=== PATIENT | male | born 1975 | race Caucasian/White ===

== ENCOUNTER 2017-12-26 12:16 | Observation (INO) | payer SELFPAY ==
[2017-12-26] VITALS (9 sets, daily range): BP systolic 123–138; BP diastolic 67–88; PULSE 70–96; RESP 14–18; TEMP 98–98.8; O2SAT 94–99
[2017-12-26] MEDS ORDERED: SODIUM CHLOR 0.9% 1000 ML INJ 1,000 ML IV ONE (12:29)
--- NOTE | 2017-12-26 12:39 | PD ---
HPI Chief Complaint: Stroke Alert Time Seen by Provider: 12:27 Travel History International Travel<30 days: No Contact w/Intl Traveler<30days: No Traveled to known affect area: No History of Present Illness HPI 41 y/o male presents with numbness to his right lower face and right lower arm. He states he was just discharged from [facility] yesterday for a stroke where he had tingling to his face and could not walk. He states all his symptoms had gone away and so that's why he came down here for the races. He states they discharged him on a baby aspirin. He denies any other concurrent complaints. He states he lives in [place]. Quality is feeling like when it goes to sleep. Duration is 30 minutes prior to arrival. [facility] Past Medical History Medical History: Denies Significant Hx Past Surgical History Tonsillectomy: Yes Other Surgery: Yes (VASECTOMY) Social History Alcohol Use: No Tobacco Use: No Substance Use: Yes Allergies-Medications (Allergen,Severity, Reaction): Coded Allergies: No Known Allergies (Unverified , 12/26/17) Review of Systems Except as stated in HPI: all other systems reviewed are Neg Physical Exam Narrative GENERAL: Well-nourished, well-developed patient. SKIN: Warm and dry. HEAD: Normocephalic and atraumatic. EYES: No injection or drainage. ENT: No nasal drainage noted. NECK: Supple, trachea midline. CARDIOVASCULAR: Regular rate and rhythm RESPIRATORY: Breath sounds equal bilaterally. No accessory muscle use. GASTROINTESTINAL: Abdomen soft, non-tender, nondistended. EXTREMITIES: No edema. BACK: Nontender without obvious deformity. NEUROLOGICAL: Awake and alert. Motor grossly within normal limits. Normal speech. 5 out of 5 in all 4 extremities, patient able to get out of wheelchair and get into the bed on his own, no pronator drift, no facial droop, patient subjectively states his right lower face and right hand feel tingly Data Data Last Documented VS Vital Signs Date Time Temp Pulse Resp B/P (MAP) Pulse Ox O2 Delivery O2 Flow Rate FiO2 12/26/17 13:06 79 16 123/79 (94) 96 Room Air 12/26/17 12:18 98.0 Orders Orders Diet Npo (12/26/17 Lunch) Activity Bed Rest (12/26/17 ) Electrocardiogram (12/26/17 ) I-Stat Profile (12/26/17 12:29) Prothrombin Time / Inr (Pt) (12/26/17 12:29) Act Partial Throm Time (Ptt) (12/26/17 12:29) Complete Blood Count With Diff (12/26/17 12:29) Fibrinogen (12/26/17 12:29) Creatine Kinase (Cpk) (12/26/17 12:29) Troponin I (12/26/17 12:29) Ua Includes Microscopic (12/26/17 12:29) Drug Screen, Random Urine (12/26/17 12:29) Type And Screen (12/26/17 12:29) Ct Brain W/O Iv Contrast(Rout) (12/26/17 ) Blood Glucose (12/26/17 12:29) Ecg Monitoring (12/26/17 12:29) Neuro Checks Q2HX12,Q4H (12/26/17 12:29) Nursing Bedside Swallow Assess .ONCE (12/26/17 12:29) Iv Access Insert/Monitor (12/26/17 12:29) NPO (12/26/17 12:29) Oximetry (12/26/17 12:29) Sodium Chlor 0.9% 1000 Ml Inj (Ns 1000 M (12/26/17 12:29) Alcohol (Ethanol) (12/26/17 12:29) Admit Order (Ed Use Only) (12/26/17 13:59) Aspirin (Aspirin) (12/26/17 14:00) Place In Observation (12/26/17 ) Code Status (12/26/17 13:57) Vital Signs (Adult) Q2HX12,Q4H (12/26/17 13:57) Nih Stroke Scale - Nihss .Daily (12/26/17 13:57) Neuro Checks Q2HX12,Q4H (12/26/17 13:57) Notify Dr: Joshua (12/26/17 13:57) Remove Urinary Catheter .ONCE (12/26/17 13:57) Ot Request For Service (12/26/17 13:57) Pt Request For Service (12/26/17 13:57) Speech Therapy Consult-Eval/Tx (12/26/17 13:57) Case Management Consult (12/26/17 ) Activity Oob Ad Diandra (12/26/17 13:57) Nursing Bedside Swallow Assess .ONCE (12/26/17 13:57) Scd Bilateral/Knee High ABBIE.QSHIFT (12/26/17 13:57) Complete Blood Count With Diff (12/27/17 06:00) Hemoglobin (Hgb) A1c (12/26/17 13:57) Lipid Profile (12/27/17 06:00) ^ Hold Medication (12/26/17 13:57) Sodium Chloride 0.9% Flush (Ns Flush) (12/26/17 21:00) Sodium Chloride 0.9% Flush (Ns Flush) (12/26/17 14:00) Aspirin Chew (Aspirin Chew) (12/27/17 09:00) Bedside Glucose ABBIE.CSUGAR (12/26/17 13:57) ^ Discontinue Insulin Orders (12/26/17 13:57) Insulin Aspart Supplemtl Scale (Novolog (12/26/17 17:00) Dextrose 50% In Avis (Vial) Inj (D50w (Vi (12/26/17 14:00) Glucagon Inj (Glucagon Inj) (12/26/17 14:00) Direct Care Staffer / Telemetry ABBIE.Q8H (12/26/17 13:57) Consult Stroke Navigator (12/26/17 ) Enoxaparin Inj (Lovenox Inj) (12/26/17 14:00) Scd Bilateral/Knee High ABBIE.BID (12/26/17 13:57) Kwaku Bilateral/Knee High ABBIE.QSHIFT (12/26/17 13:57) Comprehensive Metabolic Panel (12/27/17 06:00) Consult Neurology (12/26/17 ) Labs Laboratory Tests Test 12/26/17 12:25 White Blood Count 7.6 TH/MM3 Red Blood Count 5.08 MIL/MM3 Hemoglobin 15.4 GM/DL Bedside Hemoglobin 15.3 G/DL Hematocrit 44.9 % Bedside Hematocrit 45.0 % Mean Corpuscular Volume 88.5 FL Mean Corpuscular Hemoglobin 30.3 PG Mean Corpuscular Hemoglobin Concent 34.3 % Red Cell Distribution Width 12.5 % Platelet Count 273 TH/MM3 Mean Platelet Volume 8.7 FL Neutrophils (%) (Auto) 64.5 % Lymphocytes (%) (Auto) 25.0 % Monocytes (%) (Auto) 8.5 % Eosinophils (%) (Auto) 1.0 % Basophils (%) (Auto) 1.0 % Neutrophils # (Auto) 4.9 TH/MM3 Lymphocytes # (Auto) 1.9 TH/MM3 Monocytes # (Auto) 0.7 TH/MM3 Eosinophils # (Auto) 0.1 TH/MM3 Basophils # (Auto) 0.1 TH/MM3 CBC Comment DIFF FINAL Differential Comment Prothrombin Time 10.5 SEC Prothromb Time International Ratio 1.0 RATIO Activated Partial Thromboplast Time 24.0 SEC Fibrinogen 346 mg/dL Bedside Sodium 140 MMOL/L Bedside Potassium 4.4 MMOL/L Bedside Chloride 104 MMOL/L Bedside Blood Urea Nitrogen 14 MG/DL Bedside Creatinine 1.4 MG/DL Bedside Glucose 106 MG/DL Total Creatine Kinase 168 U/L Troponin I LESS THAN 0.02 NG/ML Ethyl Alcohol Level LESS THAN 3 MG/DL MDM Medical Decision Making Medical Screen Exam Complete: Yes Emergency Medical Condition: Yes Medical Record Reviewed: Yes (past history confirmed) Interpretation(s) CBC & BMP Diagram 12/26/17 12:25 Last [address] 12/26/17 0000 Signed Impressions: Service Date/Time: Tuesday, December 26, 2017 12:34 - CONCLUSION: Normal examination. Mini Sampson MD Differential Diagnosis Stroke, TIA, bleed, migraine Narrative Course Given history and onset of symptoms we'll call stroke alert and discuss with neurology Given patient only has tingling to his hand and lower face at this time not a candidate for TPA patient updated, will dose with aspirin and admit, denies new complaints Physician Communication Physician Communication dr winter agrees to workup and patient will need admitted to the hospital but not a candidate for TPA dr puentes agrees to admit Diagnosis Primary Impression: Right facial numbness Additional Impression: Right arm numbness Admitting Information Admitting Physician Requests: Observation Nora Dao MD Dec 26, 2017 12:39
--- NOTE | 2017-12-26 12:43 | RADRPT ---
EXAM DATE/TIME: 12/26/2017 12:34 [facility] COMPARISON: No previous studies available for comparison. INDICATIONS : Stroke alert, visual changes in right eye. RADIATION DOSE: 56.35 CTDIvol (mGy) This report was called by Dr. Sampson to Dr. Quiroz at 12: 40 PM MEDICAL HISTORY : Stroke. SURGICAL HISTORY : None. ENCOUNTER: Initial ACUITY: 1 day PAIN SCALE: 0/10 LOCATION: Bilateral head TECHNIQUE: Multiple contiguous axial images were obtained of the head. Using automated exposure control and adj ustment of the mA and/or kV according to patient size, radiation dose was kept as low as reasonably a chievable to obtain optimal diagnostic quality images. DICOM format image data is available electro nically for review and comparison. FINDINGS: CEREBRUM: The ventricles are normal for age. No evidence of midline shift, mass lesion, hemorrhage or acute in farction. No extra-axial fluid collections are seen. POSTERIOR FOSSA: The cerebellum and brainstem are intact. The 4th ventricle is midline. The cerebellopontine angle i s unremarkable. EXTRACRANIAL: The visualized portion of the orbits is intact. SKULL: The calvaria is intact. No evidence of skull fracture. CONCLUSION: Normal examination. Mini Sampson MD on December 26, 2017 at 12:39 Board Certified Radiologist. This report was verified electronically.
[2017-12-26 12:48] LABS: AUTOMATED NEUTROPHIL # 4.9 TH/MM3 (1.8-7.7); BASOPHIL # 0.1 TH/MM3 (0-0.2); EOSINOPHIL # 0.1 TH/MM3 (0-0.4); HEMATOCRIT 44.9 % (39.0-51.0); HEMOGLOBIN 15.4 GM/DL (13.0-17.0); LYMPHOCYTE # 1.9 TH/MM3 (1.0-4.8); MEAN CELL VOLUME 88.5 FL (80.0-100.0); MEAN CORPUSCULAR HEMOGLOBIN 30.3 PG (27.0-34.0); MEAN CORPUSCULAR HGB CONC 34.3 % (32.0-36.0); MEAN PLATELET VOLUME 8.7 FL (7.0-11.0); MONO % 8.5 % (0.0-8.0); MONOCYTE # 0.7 TH/MM3 (0-0.9); NEUT % 64.5 % (16.0-70.0); PLATELET COUNT 273 TH/MM3 (150-450); RED BLOOD COUNT 5.08 MIL/MM3 (4.50-5.90); RED CELL DISTRIBUTION WIDTH 12.5 % (11.6-17.2); WHITE BLOOD COUNT 7.6 TH/MM3 (4.0-11.0)
[2017-12-26 12:57] LABS: PROTHROMBIN TIME - PATIENT 10.5 SEC (9.8-11.6)
[2017-12-26 13:13] LABS: TROPONIN I LESS THAN 0.02 NG/ML (0.02-0.05)
[2017-12-26] MEDS ORDERED: SODIUM CHLORIDE 0.9% FLUSH 10 ML FLUSH IV FLUSH PRN (14:00)
[2017-12-26] MEDS ORDERED: ASPIRIN 325 MG TAB PO ONE (14:00)
[2017-12-26] MEDS ORDERED: DEXTROSE 50% IN WATER 50 ML VIAL(D50) IV PUSH PRN (14:00)
[2017-12-26] MEDS ORDERED: GLUCAGON 1 MG/ML VIAL OTHER PRN (14:00)
[2017-12-26] MEDS ORDERED: ENOXAPARIN SODIUM 30 MG/0.3 ML SYRINGE SQ SCH (15:00)
--- NOTE | 2017-12-26 15:53 | HHI.HP ---
[facility] No Primary Care Physician Admission Diagnosis right facial and arm numbness Diagnoses: (1) Right arm numbness (2) Right facial numbness Chief Complaint: Numbness of the right arm Travel History International Travel<30 Days: No Contact w/Intl Traveler <30 Da: No Traveled to Known Affected Are: No History of Present Illness The patient is a 41-year-old male who presented to the emergency department with complaint of numbness in his right arm and the right side of his face. He states that he had no medical problems until Wednesday when he had a stroke. He presented to the hospital at [facility] and was transferred to [facility] in [place]. He was reportedly given TPA. His symptoms resolved. He reports that workup showed a CVA, but no definitive etiology. He states that he had a KELVIN as part of the workup. He was discharged from the hospital yesterday and came to [facility] for the race today. He states that he went bowling and had 2 beers last night. He had no symptoms at that time. He developed the numbness today and came to the ER. He also had some blurred vision in the right eye, which has resolved. The numbness has also resolved. Review of Systems Constitutional: DENIES: Fever, Chills, Night Sweats Eyes: DENIES: Blurred vision, Vision loss Ears, nose, mouth, throat: DENIES: Hearing loss Respiratory: DENIES: Cough, Wheezing, Sputum production, Shortness of breath Cardiovascular: DENIES: Chest pain, Palpitations, Dyspnea on Exertion, Lower Extremity Edema Gastrointestinal: DENIES: Abdominal pain, Constipation, Diarrhea, Nausea, Vomiting Genitourinary: DENIES: Urinary frequency, Urinary incontinence, Urgency, Hematuria, Dysuria, Nocturia Musculoskeletal: DENIES: Joint pain, Muscle aches Integumentary: DENIES: Pruritus, Rash Hematologic/lymphatic: DENIES: Bruising Neurologic: COMPLAINS OF: Paresthesias, DENIES: Headache Past Family Social History Past Medical History CVA 5 days ago Past Surgical History Tonsillectomy Vasectomy Reported Medications Statin Aspirin 81 mg daily Allergies: Coded Allergies: No Known Allergies (Unverified , 12/26/17) Family History His mother had diabetes. She of a heart attack at age 50. He is not sure of his father's medical history. Social History He quit smoking a few months ago. Drinks approximately a sixpack of beer per week. Denies illicit drug use. Physical Exam Vital Signs Vital Signs Date Time Temp Pulse Resp B/P (MAP) Pulse Ox O2 Delivery O2 Flow Rate FiO2 12/26/17 15:30 12/26/17 15:29 70 14 136/83 (100) 98 Room Air 12/26/17 14:00 74 16 125/77 (93) 97 Room Air 12/26/17 13:06 79 16 123/79 (94) 96 Room Air 12/26/17 12:35 85 18 138/88 (105) 95 Room Air 12/26/17 12:33 99 Room Air 12/26/17 12:26 92 18 Room Air 12/26/17 12:18 98.0 96 15 129/87 (101) 97 Physical Exam GENERAL: Well-nourished, well-developed male in no acute distress. HEENT: Normocephalic, atraumatic. Pupils equal, round and reactive. Extraocular movements intact. No scleral icterus. No injection or drainage. Oropharynx is clear. Mucous membranes are moist. CARDIOVASCULAR: Regular rate and rhythm without murmurs, gallops, or rubs. RESPIRATORY: Clear to auscultation. No wheezes, rales, or rhonchi. Breathing is non-labored. GASTROINTESTINAL: Abdomen soft, non-tender, nondistended. EXTREMITIES: No lower extremity edema. No calf tenderness. PSYCH: Alert and oriented x 3. NEURO: Cranial nerves II through XII are grossly intact. Strength is 5/5 in all 4 extremities. Laboratory Laboratory Tests Test 12/26/17 12:25 White Blood Count 7.6 Red Blood Count 5.08 Hemoglobin 15.4 Bedside Hemoglobin 15.3 Hematocrit 44.9 Bedside Hematocrit 45.0 Mean Corpuscular Volume 88.5 Mean Corpuscular Hemoglobin 30.3 Mean Corpuscular Hemoglobin Concent 34.3 Red Cell Distribution Width 12.5 Platelet Count 273 Mean Platelet Volume 8.7 Neutrophils (%) (Auto) 64.5 Lymphocytes (%) (Auto) 25.0 Monocytes (%) (Auto) 8.5 Eosinophils (%) (Auto) 1.0 Basophils (%) (Auto) 1.0 Neutrophils # (Auto) 4.9 Lymphocytes # (Auto) 1.9 Monocytes # (Auto) 0.7 Eosinophils # (Auto) 0.1 Basophils # (Auto) 0.1 CBC Comment DIFF FINAL Differential Comment Prothrombin Time 10.5 Prothromb Time International Ratio 1.0 Activated Partial Thromboplast Time 24.0 Fibrinogen 346 Bedside Sodium 140 Bedside Potassium 4.4 Bedside Chloride 104 Bedside Blood Urea Nitrogen 14 Bedside Creatinine 1.4 Bedside Glucose 106 Total Creatine Kinase 168 Troponin I LESS THAN 0.02 Ethyl Alcohol Level LESS THAN 3 Result Diagram: 12/26/17 1225 Imaging Last Impressions Head CT 12/26/17 0000 Signed Impressions: Service Date/Time: Tuesday, December 26, 2017 12:34 - CONCLUSION: Normal examination. MD Cortez Zamarripa VTE Risk Assessment Capmurtaza VTE Risk Assessment: Mod/High Risk (score >= 2) Caprini Risk Assessment Model Point Value = 1 Point Value = 2 Point Value = 3 Point Value = 5 Age 41-60 Minor surgery BMI > 25 kg/m2 Swollen legs Varicose veins or History of unexplained or recurrent spontaneous Oral contraceptives or hormone replacement Sepsis (< 1 month) Serious lung disease, including pneumonia (< 1 month) Abnormal pulmonary function Acute myocardial infarction Congestive heart failure (< 1 month) History of inflammatory bowel disease Medical patient at bed rest Age 61-74 Arthroscopic surgery Major open surgery (> 45 min) Laparoscopic surgery (> 45 min) Malignancy Confined to bed (> 72 hours) Immobilizing plaster cast Central venous access Age >= 75 History of VTE Family history of VTE Factor V Leiden Prothrombin [id number] Lupus anticoagulant Anticardiolipin antibodies Elevated serum homocysteine Heparin-induced thrombocytopenia Other congenital or acquired thrombophilia Stroke (< 1 month) Elective arthroplasty Hip, pelvis, or leg fracture Acute spinal cord injury (< 1 month) Prophylaxis Regimen Total Risk Factor Score Risk Level Prophylaxis Regimen 0-1 Low Early ambulation 2 Moderate Order ONE of the following: *Sequential Compression Device (SCD) *Heparin 5000 units SQ BID 3-4 Higher Order ONE of the following medications: *Heparin 5000 units SQ TID *Enoxaparin/Lovenox 40 mg SQ daily (WT < 150 kg, CrCl > 30 mL/min) *Enoxaparin/Lovenox 30 mg SQ daily (WT < 150 kg, CrCl > 10-29 mL/min) *Enoxaparin/Lovenox 30 mg SQ BID (WT < 150 kg, CrCl > 30 mL/min) AND/OR *Sequential Compression Device (SCD) 5 or more Highest Order ONE of the following medications: *Heparin 5000 units SQ TID (Preferred with Epidurals) *Enoxaparin/Lovenox 40 mg SQ daily (WT < 150 kg, CrCl > 30 mL/min) *Enoxaparin/Lovenox 30 mg SQ daily (WT < 150 kg, CrCl > 10-29 mL/min) *Enoxaparin/Lovenox 30 mg SQ BID (WT < 150 kg, CrCl > 30 mL/min) AND *Sequential Compression Device (SCD) Assessment and Plan Assessment and Plan 1. Numbness, visual changes: Patient had recent CVA and was discharged from the hospital yesterday. He did not take his aspirin this morning. Instead, he took an Aleve. PT/OT/ST evals. Consult neurology. ER physician spoke with Dr. Zambrano. Check MRI of the brain. Try to obtain records from recent hospitalization. Continue aspirin, statin. 2. Renal insufficiency: Creatinine 1.4. No other labs available for comparison. Monitor labs. 3. DVT prophylaxis: Lovenox. Erlin Eastman MD Dec 26, 2017 15:53
--- NOTE | 2017-12-26 16:48 | RADRPT ---
EXAM DATE/TIME: 12/26/2017 16:09 [facility] COMPARISON: No previous studies available for comparison. INDICATIONS : Right sided weakness. Stroke 12/21/17 with TPA. New symptoms today. MEDICAL HISTORY : Cerebrovascular disease. SURGICAL HISTORY : Tonsillectomy. Vasectomy. ENCOUNTER: Initial ACUITY: 4-6 days PAIN SCORE: 0/10 LOCATION: cranial TECHNIQUE: Multiplanar, multisequence MRI of the brain was performed without contrast. FINDINGS: DIFFUSION IMAGIN.4 x 0.8 cm area of restricted diffusion in the medial left parietal lobe. 1.2 x 0.4 cm area of rest ricted diffusion in the posterior medial left occipital cortex. CEREBRUM: Signal abnormality on the T2-weighted images corresponding to the areas of restricted diffusion in th e medial left parietal-occipital region indicating acute infarct. No mass effect or midline shift. Ve ntricles within normal limits. No evidence of intracranial hemorrhage. WHITE MATTER: No significant signal abnormalities are seen in the white matter. POSTERIOR FOSSA: The cerebellum and brainstem are intact. The 4th ventricle is midline. The cerebellopontine angle is unremarkable. The cerebellar tonsils are normal in position. EXTRACRANIAL: The visualized portions of the orbits and paranasal sinuses are unremarkable. CONCLUSION: Acute infarcts in the left posterior cerebral artery distribution. No evidence of mass effect or midl ine shift. Yaya Salas MD on December 26, 2017 at 16:43 Board Certified Radiologist. This report was verified electronically.
[2017-12-26] MEDS: INSULIN ASPART SUPPLEMENTAL SCALE SQ SCH ×2 (17:00→21:00)
--- NOTE | 2017-12-26 18:00 | MB ---
cc: ILYA NELSON M.D. DATE OF CONSULTATION: 12/26/2017. REASON FOR CONSULTATION: This is a 41-year-old seen in neurological consultation. HISTORY OF PRESENT ILLNESS: The patient was contacted by the stroke alert team earlier today. I spoke to Dr. Quiroz on a couple of occasions and he felt the patient was not a candidate for tPA. He presented today with some right-sided numbness. There was no apparent weakness. He was discharged from [facility] in [place] yesterday for stroke alert and he had right-sided symptoms including some paresthesias and difficulty with gait. At that time he was apparently treated with tPA in another hospital and then transferred to [facility]. By what he describes to me, and he seems to be able to provide accurate information, he had a rather extensive a workup including transesophageal echocardiogram, cerebral angiogram studies (possibly CT angio studies), MRI studies, and everything was negative. He was treated with baby aspirin and was discharged home yesterday. He came to the races here today and while at the track developed these symptoms. He is feeling much better. He seems to provide reasonable / genuine information and he feels like he may have panicked when he started having some symptoms on the right side. He was sweating and possibly dehydrated. His neurologic exam is completely normal. Reflexes were trace responsive and he has good strength. Speech and language normal. There is minimal right facial flattening of questionable significance. Visual soares full. The CT brain was negative. The laboratory data included a normal CBC, alcohol less than 3, basic chemistry normal. ASSESSMENT: Resolved right sided numbness. This may well have been just a panic attack from his recent concern about the cerebrovascular event. He was evaluated extensively at [facility] as discussed above. He was started on a statin and aspirin that was given in the emergency room. It would be nice if we can get his records from [facility] so that we avoid a repetition of the extensive evaluation. I am going to order the hypercoagulable profile for the time being. If we can get the records from [facility], then if he is stable he could be discharged tomorrow for outpatient followup. Thank you for asking us to assist in his care. MD SHERON Blanc/C /5:30 PM /5:49 PM
[2017-12-26] MEDS: SODIUM CHLORIDE 0.9% FLUSH 10 ML FLUSH IV FLUSH SCH (20:41)
[2017-12-26] MEDS ORDERED: ATORVASTATIN 10 MG TAB PO SCH (21:00)
[2017-12-27 00:07] VITALS: PULSE 59
[2017-12-27 03:36] VITALS: BP 117/72; PULSE 59; RESP 18; TEMP 98.9; O2SAT 98
[2017-12-27 05:14] LABS: AUTOMATED NEUTROPHIL # 3.4 TH/MM3 (1.8-7.7); BASOPHIL # 0.1 TH/MM3 (0-0.2); BASOPHIL % 0.9 % (0.0-2.0); EOSINOPHIL # 0.3 TH/MM3 (0-0.4); EOSINOPHIL % 4.1 % (0.0-4.0); HEMATOCRIT 41.7 % (39.0-51.0); HEMOGLOBIN 14.6 GM/DL (13.0-17.0); LYMPH % 39.6 % (9.0-44.0); MEAN CORPUSCULAR HEMOGLOBIN 30.8 PG (27.0-34.0); MEAN PLATELET VOLUME 8.6 FL (7.0-11.0); MONO % 9.7 % (0.0-8.0); MONOCYTE # 0.7 TH/MM3 (0-0.9); NEUT % 45.7 % (16.0-70.0); PLATELET COUNT 242 TH/MM3 (150-450); RED BLOOD COUNT 4.74 MIL/MM3 (4.50-5.90); RED CELL DISTRIBUTION WIDTH 12.4 % (11.6-17.2); WHITE BLOOD COUNT 7.5 TH/MM3 (4.0-11.0)
[2017-12-27 05:40] LABS: ALBUMIN 3.6 GM/DL (3.4-5.0); AST (GOT) 17 U/L (15-37); BICARBONATE 24.1 MEQ/L (21.0-32.0); BLOOD UREA NITROGEN 12 MG/DL (7-18); CALCIUM 8.8 MG/DL (8.5-10.1); CHLORIDE 107 MEQ/L (98-107); CREATININE 1.02 MG/DL (0.60-1.30); GLOMERULAR FILTRATION RATE 81 ML/MIN (>89); GLUCOSE,RANDOM 80 MG/DL (74-106); SODIUM (NA) 139 MEQ/L (136-145)
[2017-12-27 05:41] LABS: ALT (GPT) 41 U/L (12-78); CHOLESTEROL 100 MG/DL (120-200); TRIGLYCERIDES 71 MG/DL (42-150)
[2017-12-27 05:44] LABS: ALKALINE PHOSPHATASE 57 U/L (45-117); CHOLESTEROL/ HDL RATIO 2.66 RATIO; HDL CHOLESTEROL 37.5 MG/DL (40.0-60.0); LDL CHOLESTEROL 48 MG/DL (0-99); TOTAL BILIRUBIN ADULT 0.7 MG/DL (0.2-1.0); TOTAL PROTEIN 6.7 GM/DL (6.4-8.2)
[2017-12-27 08:00] VITALS: BP 115/75; PULSE 59; PULSE 65; RESP 20; TEMP 96.1; O2SAT 96
[2017-12-27] MEDS: INSULIN ASPART SUPPLEMENTAL SCALE SQ SCH (08:00)
[2017-12-27] MEDS ORDERED: ASPIRIN 81 MG CHEW TAB PO SCH (09:00)
[2017-12-27] MEDS: SODIUM CHLORIDE 0.9% FLUSH 10 ML FLUSH IV FLUSH SCH (09:54)
[2017-12-27] MEDS ORDERED: LIPI10TA PO (10:30)
[2017-12-27] MEDS ORDERED: ASPI81 PO (10:30)
--- NOTE | 2017-12-27 10:31 | HHI.PR ---
Subjective Remarks Follow-up for right-sided numbness in a patient with recent stroke. Patient is currently doing well. No acute concerns. Objective Vitals Vital Signs Date Time Temp Pulse Resp B/P (MAP) Pulse Ox O2 Delivery O2 Flow Rate FiO2 12/27/17 08:00 96.1 65 20 115/75 (88) 96 12/27/17 03:36 98.9 59 18 117/72 (87) 98 12/27/17 00:07 59 12/26/17 23:37 98.7 72 18 136/67 (90) 98 12/26/17 20:09 98.8 76 18 130/83 (99) 94 12/26/17 16:51 134/76 (95) 12/26/17 15:30 12/26/17 15:29 70 14 136/83 (100) 98 Room Air 12/26/17 14:00 74 16 125/77 (93) 97 Room Air 12/26/17 13:06 79 16 123/79 (94) 96 Room Air 12/26/17 12:35 85 18 138/88 (105) 95 Room Air 12/26/17 12:33 99 Room Air 12/26/17 12:26 92 18 Room Air 12/26/17 12:18 98.0 96 15 129/87 (101) 97 I/O 12/26/17 12/26/17 12/26/17 12/27/17 12/27/17 12/27/17 07:00 15:00 23:00 07:00 15:00 23:00 Intake Total 600 ml 1000 ml Balance 600 ml 1000 ml Intake Oral 600 ml IV Total 1000 ml # Voids 1 # Bowel Movements 0 Result Diagram: 12/27/17 0416 12/27/17 0406 Imaging Last Impressions Head CT 12/26/17 0000 Signed Impressions: Service Date/Time: Tuesday, December 26, 2017 12:34 - CONCLUSION: Normal examination. Mini Sampson MD Brain MRI 12/26/17 0000 Signed Impressions: Service Date/Time: Tuesday, December 26, 2017 16:09 - CONCLUSION: Acute infarcts in the left posterior cerebral artery distribution. No evidence of mass effect or midline shift. Yaya Salas MD Objective Remarks GENERAL: Alert, oriented 3, NAD. SKIN: Warm and dry. HEAD: Normocephalic. EYES: No scleral icterus. No injection or drainage. NECK: Supple, trachea midline. No JVD or lymphadenopathy. CARDIOVASCULAR: Regular rate and rhythm without murmurs, gallops, or rubs. RESPIRATORY: Breath sounds equal bilaterally. No accessory muscle use. GASTROINTESTINAL: Abdomen soft, non-tender, nondistended. MUSCULOSKELETAL: No cyanosis, or edema. BACK: Nontender without obvious deformity. No CVA tenderness. Procedures None A/P Problem List: (1) Right arm numbness ICD Code: R20.2 - Paresthesia of skin Status: Acute (2) Right facial numbness ICD Code: R20.0 - Anesthesia of skin Status: Acute Assessment and Plan The patient is a 41-year-old male who presented to the emergency department with complaint of numbness in his right arm and the right side of his face. He recently was diagnosed with CVA and received TPA at [facility] in [facility]. 1. Numbness, visual changes: Patient had recent CVA and was discharged from the hospital ([facility]) on 12/25/2017. Neurology was consulted. MRI study shows acute infarcts in the posterior circulation distribution. We compared our MRI study results with reports from [facility]. I also discussed with radiologist at [place]. We believe patient's MRI results from 12/26/2017 is not a new finding but the same MRI results that was obtained on 12/23/2017 at [facility]. Patient is completely asymptomatic.I discussed with Neurologist (Dr. Zambrano). Since there is no new stroke, we will continue Aspirin and Statin. 2. Renal insufficiency: Creatinine 1.4 - resolved. Creatinine 1.02 today. 3. DVT prophylaxis: Lovenox. Patient was discharged home and encouraged patient to keep his appointment with his Doctors at [facility]. Discharge patient to home Condition on discharge: Improved Regular Diet as tolerated Ad Diandra activity Rx written: None. Follow-up with primary care physician PRFarzad, Neurology ([facility]) as scheduled. Curry Wolf DO Dec 27, 2017 10:31 am
[2017-12-27 15:56] LABS: HEMOGLOBIN A1C 5.3 % (4.3-6.0)
--- NOTE | 2017-12-27 18:53 | EKG ---
Date Performed: 12/26/2017 Time Performed: 12:29:08 PTAGE: 41 years EKG: Sinus rhythm NONSPECIFIC T-WAVE ABNORMALITY BORDERLINE ECG NO PREVIOUS TRACING DOCTOR: Ayan Barajas Interpretating Date/Time 12/27/2017 18:52:09
[2017-12-29 15:50] LABS: CARDIOLIPIN IGG AB 10.8 GPL; CARDIOLIPIN IGM AB <9.4 MPL
== END 2017-12-27 11:38 | disposition home or self-care (01) ==
LOC: NEPC 12:16 → NEDA 14:01 → NEPGCP 16:06
PROVIDERS: ADMIT Hospitalist; ATTEND Hospitalist
DX: R20.0 Anesthesia of skin (principal); I63.9 Cerebral infarction, unspecified; N28.9 Disorder of kidney and ureter, unspecified; I67.9 Cerebrovascular disease, unspecified; R94.31 Abnormal electrocardiogram [ECG] [EKG]; Z87.891 Personal history of nicotine dependence
CPT/HCPCS: 70450; 70551; 80048; 80053; 80061; 80307; 82550; 82948; 83036; 84484; 85025; 85384; 85610; 85730; 86147; 86850; 86900; 86901; 92610; 93005; 96360; 96361; 96372; 99285; G0378; G8996; G8997; G8998; J1650; J7030